=== PATIENT | male | born 1975 | race Caucasian/White ===

== ENCOUNTER → 2016-10-21 | Outpatient (CLI) | payer BC ==
[2016-10-21 16:28] LABS: CH 31.2; CHCM 33.7; HCT 51.8 % (39.0-53.0); HDW 2.68; MCH 30.6 pg (25.0-35.0); MCHC 32.9 g/dL (31.0-37.0); Mean Platelet Volume 7.1; RBC 5.57 m/uL (4.30-5.90); RDW 13.6 % (11.5-15.5); WBC 14.2 k/uL (3.8-10.6)
[2016-10-21 16:54] LABS: Prolactin 67.2 ng/mL (3.7-17.9)
[2016-10-21 17:08] LABS: Prostate Specific Antigen 0.65 ng/mL (0.00-4.00)
== END | disposition home or self-care (01) ==
LOC: LABWHC1 15:44
PROVIDERS: ATTEND Internal Medicine Endocrinology, Diabetes & Metabolism
DX: D35.2 Benign neoplasm of pituitary gland (principal); E29.1 Testicular hypofunction
CPT/HCPCS: 36415; 84146; 84153; 84403; 85027

== ENCOUNTER → 2017-02-17 | Outpatient (CLI) | payer BC ==
[2017-02-17 16:42] LABS: CH 32.1; CHCM 34.2; HDW 2.63; HGB 16.8 gm/dL (13.0-17.5); MCH 31.7 pg (25.0-35.0); MCHC 33.6 g/dL (31.0-37.0); MCV 94.3 fL (80.0-100.0); Mean Platelet Volume 7.7; RDW 13.6 % (11.5-15.5); WBC 14.1 k/uL (3.8-10.6)
[2017-02-17 16:55] LABS: ALT 45 U/L (21-72); AST 24 U/L (17-59); Alkaline Phosphatase 109 U/L (38-126); Anion Gap 8 mmol/L; Blood Urea Nitrogen 9 mg/dL (9-20); Calcium 9.2 mg/dL (8.4-10.2); Carbon Dioxide 28 mmol/L (22-30); Chloride 105 mmol/L (98-107); Glucose 77 mg/dL (74-99); Non-African American GFR(MDRD) >60 (>60 ml/min/1.73 sqM); Potassium 3.9 mmol/L (3.5-5.1); Sodium 141 mmol/L (137-145); Total Bilirubin 0.6 mg/dL (0.2-1.3); Total Protein 6.5 g/dL (6.3-8.2)
[2017-02-17 17:11] LABS: Prolactin 76.1 ng/mL (3.7-17.9)
== END ==
LOC: LABWHC1 16:09
PROVIDERS: ATTEND Internal Medicine Endocrinology, Diabetes & Metabolism
DX: D35.2 Benign neoplasm of pituitary gland (principal)
CPT/HCPCS: 36415; 80053; 84146; 84403; 85027

== ENCOUNTER → 2017-06-15 | Outpatient (CLI) | payer BC ==
[2017-06-15 16:08] LABS: CH 33.1; CHCM 34.8; HCT 48.7 % (39.0-53.0); HDW 2.76; HGB 16.6 gm/dL (13.0-17.5); MCH 32.6 pg (25.0-35.0); MCHC 34.1 g/dL (31.0-37.0); MCV 95.6 fL (80.0-100.0); Mean Platelet Volume 7.9; RBC 5.09 m/uL (4.30-5.90); RDW 15.2 % (11.5-15.5); WBC 13.8 k/uL (3.8-10.6)
[2017-06-15 16:19] LABS: ALT 43 U/L (21-72); AST 23 U/L (17-59); Alkaline Phosphatase 101 U/L (38-126); Anion Gap 10 mmol/L; Blood Urea Nitrogen 10 mg/dL (9-20); Calcium 9.3 mg/dL (8.4-10.2); Carbon Dioxide 26 mmol/L (22-30); Chloride 104 mmol/L (98-107); Glucose 103 mg/dL (74-99); Non-African American GFR(MDRD) >60 (>60 ml/min/1.73 sqM); Potassium 4.1 mmol/L (3.5-5.1); Sodium 140 mmol/L (137-145); Total Bilirubin 0.5 mg/dL (0.2-1.3); Total Protein 6.5 g/dL (6.3-8.2)
[2017-06-15 16:51] LABS: Prostate Specific Antigen 0.55 ng/mL (0.00-4.00)
== END | disposition home or self-care (01) ==
LOC: LABWHC1 15:37
PROVIDERS: ATTEND Internal Medicine Endocrinology, Diabetes & Metabolism
DX: D35.2 Benign neoplasm of pituitary gland (principal); E29.1 Testicular hypofunction
CPT/HCPCS: 36415; 80053; 84146; 84153; 84439; 84443; 84480; 85027

== ENCOUNTER → 2017-12-13 | Outpatient (CLI) | payer BC ==
[2017-12-13 15:50] LABS: HCT 50.1 % (39.0-53.0); HGB 16.3 gm/dL (13.0-17.5); MCHC 32.5 g/dL (31.0-37.0); MCV 92.2 fL (80.0-100.0); Mean Platelet Volume 7.7; Platelet Count 211 k/uL (150-450); RBC 5.43 m/uL (4.30-5.90); RDW 13.2 % (11.5-15.5); WBC 14.6 k/uL (3.8-10.6)
[2017-12-13 18:45] LABS: T4, Free (Free Thyroxine) 1.01 ng/dL (0.78-2.19)
[2017-12-13 21:55] LABS: ACTH 11.5 pg/mL (0.00-45.99)
== END | disposition home or self-care (01) ==
LOC: LABWHC1 15:28
PROVIDERS: ATTEND Internal Medicine Endocrinology, Diabetes & Metabolism
DX: E29.1 Testicular hypofunction (principal); D35.2 Benign neoplasm of pituitary gland
CPT/HCPCS: 36415; 82024; 84146; 84403; 84439; 84443; 85027

== ENCOUNTER → 2018-04-29 | Outpatient (CLI) | payer BC ==
[2018-04-29 16:01] LABS: MCH 30.3 pg (25.0-35.0); MCHC 33.9 g/dL (31.0-37.0); MCV 89.4 fL (80.0-100.0); Mean Platelet Volume 7.6; Platelet Count 227 k/uL (150-450); RBC 5.59 m/uL (4.30-5.90); RDW 13.7 % (11.5-15.5); WBC 12.3 k/uL (3.8-10.6)
[2018-04-29 16:11] LABS: ALT 45 U/L (21-72); AST 22 U/L (17-59); Albumin 4.3 g/dL (3.5-5.0); Alkaline Phosphatase 95 U/L (38-126); Anion Gap 9 mmol/L; Blood Urea Nitrogen 13 mg/dL (9-20); Calcium 9.4 mg/dL (8.4-10.2); Carbon Dioxide 26 mmol/L (22-30); Chloride 106 mmol/L (98-107); Glucose 96 mg/dL (74-99); Potassium 3.9 mmol/L (3.5-5.1); Sodium 141 mmol/L (137-145); Total Bilirubin 0.4 mg/dL (0.2-1.3); Total Protein 6.5 g/dL (6.3-8.2)
[2018-04-29 16:28] LABS: T4, Free (Free Thyroxine) 0.87 ng/dL (0.78-2.19)
[2018-04-29 16:42] LABS: Prostate Specific Antigen 0.66 ng/mL (0.00-4.00)
== END | disposition home or self-care (01) ==
LOC: LABWHC1 15:26
PROVIDERS: ATTEND Internal Medicine Endocrinology, Diabetes & Metabolism
DX: D35.2 Benign neoplasm of pituitary gland (principal); E29.1 Testicular hypofunction
CPT/HCPCS: 36415; 80053; 84146; 84153; 84403; 84439; 84443; 85027

== ENCOUNTER → 2018-11-02 | Outpatient (CLI) | payer BC ==
[2018-11-02 16:42] LABS: HCT 50.9 % (39.0-53.0); HGB 16.7 gm/dL (13.0-17.5); MCHC 32.9 g/dL (31.0-37.0); MCV 91.1 fL (80.0-100.0); Mean Platelet Volume 6.9; Platelet Count 218 k/uL (150-450); RBC 5.59 m/uL (4.30-5.90); RDW 13.4 % (11.5-15.5); WBC 12.9 k/uL (3.8-10.6)
[2018-11-03 02:52] LABS: Albumin 4.5 g/dL (3.80-4.90); Albumin/Globulin Ratio 3.21 (1.20-2.10); Calcium 9.3 mg/dL (8.7-10.3); Globulin 1.4 g/dL (1.6-3.3); Potassium 3.9 mmol/L (3.5-5.5); Total Bilirubin 0.4 mg/dL (0.3-1.2); Total Protein 5.9 g/dL (6.2-8.2)
[2018-11-03 03:00] LABS: T4, Free (Free Thyroxine) 1.2 ng/dL (0.80-1.80)
== END | disposition home or self-care (01) ==
LOC: LABWHC1 15:28
PROVIDERS: ATTEND Internal Medicine Endocrinology, Diabetes & Metabolism
DX: D35.2 Benign neoplasm of pituitary gland (principal)
CPT/HCPCS: 36415; 80053; 82533; 84146; 84403; 84439; 84443; 84480; 85027

== ENCOUNTER → 2019-05-08 | Outpatient (CLI) | payer BC ==
[2019-05-08 15:29] LABS: HCT 49.2 % (39.0-53.0); HGB 16.7 gm/dL (13.0-17.5); MCH 30.8 pg (25.0-35.0); MCV 90.5 fL (80.0-100.0); Mean Platelet Volume 7.4; Platelet Count 222 k/uL (150-450); RBC 5.44 m/uL (4.30-5.90); RDW 13.8 % (11.5-15.5); WBC 11.5 k/uL (3.8-10.6)
[2019-05-08 19:30] LABS: African American GFR (CKD) 106.4 (60.0-200.0); Albumin 4.3 g/dL (3.80-4.90); Albumin/Globulin Ratio 2.87 (1.60-3.17); Anion Gap 8.3 mmol/L (4.00-12.00); Calcium 8.9 mg/dL (8.7-10.3); Carbon Dioxide 25.7 mmol/L (21.6-31.8); Globulin 1.5 g/dL (1.6-3.3); Potassium 3.9 mmol/L (3.5-5.5); Total Bilirubin 0.4 mg/dL (0.3-1.2); Total Protein 5.8 g/dL (6.2-8.2)
== END | disposition home or self-care (01) ==
LOC: LABWHC1 14:37
PROVIDERS: ATTEND Internal Medicine Endocrinology, Diabetes & Metabolism
DX: D35.2 Benign neoplasm of pituitary gland (principal)
CPT/HCPCS: 36415; 80053; 84146; 84403; 84439; 85027

== ENCOUNTER → 2019-11-16 | Outpatient (CLI) | payer OTHER ==
[2019-11-17 01:11] LABS: African American GFR (CKD) 105.6 (60.0-200.0); Albumin 4.6 g/dL (3.80-4.90); Albumin/Globulin Ratio 3.29 (1.60-3.17); Anion Gap 8.5 mmol/L (4.00-12.00); Calcium 8.7 mg/dL (8.7-10.3); Carbon Dioxide 25.5 mmol/L (21.6-31.8); Globulin 1.4 g/dL (1.6-3.3); Non-African American GFR(CKD) 91.1 (60.0-200.0); Potassium 3.9 mmol/L (3.5-5.5); Total Bilirubin 0.3 mg/dL (0.3-1.2)
[2019-11-17 01:21] LABS: T4, Free (Free Thyroxine) 1.3 ng/dL (0.80-1.80)
[2019-11-17 01:25] LABS: Prolactin 44.8 ng/mL (2.1-17.7)
== END | disposition home or self-care (01) ==
LOC: LABWHC1 15:13
PROVIDERS: ATTEND Internal Medicine Endocrinology, Diabetes & Metabolism
DX: D35.2 Benign neoplasm of pituitary gland (principal)
CPT/HCPCS: 36415; 80053; 82533; 84146; 84403; 84439; 84443

== ENCOUNTER → 2020-05-30 | Outpatient (CLI) | payer OTHER ==
[2020-05-30 15:12] LABS: HGB 16.2 gm/dL (13.0-17.5); MCH 30.9 pg (25.0-35.0); MCHC 33.7 g/dL (31.0-37.0); MCV 91.6 fL (80.0-100.0); Mean Platelet Volume 8.3; Platelet Count 196 k/uL (150-450); RBC 5.24 m/uL (4.30-5.90); RDW 13.3 % (11.5-15.5)
== END | disposition home or self-care (01) ==
LOC: LABWHC1 14:56
PROVIDERS: ATTEND Internal Medicine Endocrinology, Diabetes & Metabolism
DX: D35.2 Benign neoplasm of pituitary gland (principal)
CPT/HCPCS: 36415; 82024; 82533; 84146; 84403; 85027

== ENCOUNTER → 2020-11-27 | Outpatient (CLI) | payer OTHER ==
[2020-11-27 22:49] LABS: HCT 49.9 % (39.6-50.0); MCH 31.2 pg (27.0-32.0); MCHC 34.1 g/dL (32.0-37.0); MCV 91.6 fL (80.0-97.0); Mean Platelet Volume 10.9 fL (9.5-12.2); Platelet Count 217 X 10*3/uL (140-440); RBC 5.45 X 10*6/uL (4.40-5.60); RDW 12.9 % (11.5-14.5); WBC 12.83 X 10*3/uL (4.50-10.00)
[2020-11-28 01:51] LABS: Prostate Specific Antigen 0.6 ng/mL (0.0-2.5)
[2020-11-28 02:46] LABS: Prolactin 48.2 ng/mL (2.1-17.7)
== END | disposition home or self-care (01) ==
LOC: LABWHC1 14:45
PROVIDERS: ATTEND Internal Medicine Endocrinology, Diabetes & Metabolism
DX: E29.1 Testicular hypofunction (principal); D35.2 Benign neoplasm of pituitary gland
CPT/HCPCS: 36415; 82024; 82533; 84146; 84153; 84403; 85027

== ENCOUNTER → 2021-07-23 | Outpatient (CLI) | payer OTHER ==
[2021-07-23 23:23] LABS: HCT 49.8 % (39.6-50.0); HGB 16.8 g/dL (13.0-17.0); MCH 30.6 pg (27.0-32.0); MCHC 33.7 g/dL (32.0-37.0); MCV 90.7 fL (80.0-97.0); Mean Platelet Volume 10.9 fL (9.5-12.2); Platelet Count 224 X 10*3/uL (140-440); RBC 5.49 X 10*6/uL (4.40-5.60); WBC 12.89 X 10*3/uL (4.50-10.00)
[2021-07-25 01:05] LABS: Prolactin 49.6 ng/mL (2.100-17.700)
== END | disposition home or self-care (01) ==
LOC: LABWHC1 15:47
PROVIDERS: ATTEND Internal Medicine Endocrinology, Diabetes & Metabolism
DX: D35.2 Benign neoplasm of pituitary gland (principal); E29.1 Testicular hypofunction
CPT/HCPCS: 36415; 84146; 84305; 84403; 85027

== ENCOUNTER → 2022-02-24 | Outpatient (CLI) | payer BC ==
[2022-02-24 23:22] LABS: HCT 44.9 % (39.6-50.0); HGB 14.7 g/dL (13.0-17.0); MCH 30.1 pg (27.0-32.0); MCHC 32.7 g/dL (32.0-37.0); Mean Platelet Volume 10.9 fL (9.5-12.2); NRBC Per 100 WBC 0 /100 WBCS (0.0-0.0); Platelet Count 224 X 10*3/uL (140-440); RBC 4.88 X 10*6/uL (4.40-5.60); RDW 13.3 % (11.5-14.5); WBC 12.11 X 10*3/uL (4.50-10.00)
[2022-02-25 00:01] LABS: Prolactin 23.1 ng/mL (2.100-17.700)
== END | disposition home or self-care (01) ==
LOC: LABWHC1 15:27
PROVIDERS: ATTEND Internal Medicine Endocrinology, Diabetes & Metabolism
DX: D35.2 Benign neoplasm of pituitary gland (principal); E29.1 Testicular hypofunction
CPT/HCPCS: 36415; 84146; 84305; 84403; 85027

== ENCOUNTER → 2022-07-09 | Outpatient (CLI) | payer BC ==
[2022-07-09 23:03] LABS: HCT 45.7 % (39.6-50.0); HGB 15.5 g/dL (13.0-17.0); MCH 30.6 pg (27.0-32.0); MCHC 33.9 g/dL (32.0-37.0); MCV 90.3 fL (80.0-97.0); Mean Platelet Volume 10.8 fL (9.5-12.2); NRBC Per 100 WBC 0 /100 WBCS (0.0-0.0); Platelet Count 242 X 10*3/uL (140-440); RBC 5.06 X 10*6/uL (4.40-5.60); RDW 13.1 % (11.5-14.5); WBC 13.61 X 10*3/uL (4.50-10.00)
[2022-07-10 00:43] LABS: Prolactin 22.5 ng/mL (2.100-17.700); Prostate Specific Antigen 0.4 ng/mL (0.00-2.50)
== END | disposition home or self-care (01) ==
LOC: LABWHC1 15:02
PROVIDERS: ATTEND Internal Medicine Endocrinology, Diabetes & Metabolism
DX: E29.1 Testicular hypofunction (principal); D35.2 Benign neoplasm of pituitary gland; E27.40 Unspecified adrenocortical insufficiency
CPT/HCPCS: 36415; 82024; 82533; 84146; 84153; 84403; 85027

== ENCOUNTER → 2023-01-19 | Outpatient (CLI) | payer BC ==
[2023-01-19 15:32] LABS: HCT 47.2 % (39.6-50.0); HGB 15.7 g/dL (13.0-17.0); MCH 29.8 pg (27.0-32.0); MCHC 33.3 g/dL (32.0-37.0); MCV 89.7 fL (80.0-97.0); Mean Platelet Volume 10.6 fL (9.5-12.2); NRBC Per 100 WBC 0 /100 WBCS (0.0-0.0); Platelet Count 239 X 10*3/uL (140-440); RBC 5.26 X 10*6/uL (4.40-5.60); RDW 13.1 % (11.5-14.5); WBC 11.56 X 10*3/uL (4.50-10.00)
[2023-01-19 16:52] LABS: Prolactin 25.4 ng/mL (2.100-17.700)
== END | disposition home or self-care (01) ==
LOC: LABWHC1 09:33
PROVIDERS: ATTEND Internal Medicine Endocrinology, Diabetes & Metabolism
DX: D35.2 Benign neoplasm of pituitary gland (principal)
CPT/HCPCS: 36415; 82024; 82533; 84146; 84153; 84403; 85027

== ENCOUNTER → 2023-08-12 | Outpatient (CLI) | payer BC ==
[2023-08-12 20:46] LABS: Prostate Specific Antigen 0.48 ng/mL (0.000-2.500)
[2023-08-12 21:35] LABS: Prolactin 28.3 ng/mL (2.100-17.000)
[2023-08-13 01:00] LABS: HCT 46.1 % (39.6-50.0); HGB 15.7 d/dL (13.0-17.0); MCH 30.8 pg (27.0-32.0); MCHC 34.1 d/dL (32.0-37.0); MCV 90.6 FL (80.0-97.0); Mean Platelet Volume 11.1 FL (9.5-12.2); NRBC Per 100 WBC 0 X 10*3/uL (0.00-0.01); Platelet Count 225 X 10*3/uL (140-440); RBC 5.09 X 10*6/uL (4.40-5.60); RDW 13.7 % (11.5-14.5); WBC 12.67 X 10*3/uL (4.50-10.00)
== END | disposition home or self-care (01) ==
LOC: LABWHC1 15:01
PROVIDERS: ATTEND Internal Medicine Endocrinology, Diabetes & Metabolism
DX: D35.2 Benign neoplasm of pituitary gland (principal)
CPT/HCPCS: 36415; 82024; 82533; 84146; 84153; 84403; 85027

== ENCOUNTER → 2024-03-15 | Outpatient (CLI) | payer BC ==
[2024-03-15 19:20] LABS: HCT 46.3 % (39.6-50.0); HGB 15.6 g/dL (13.0-17.0); MCH 30.3 pg (27.0-32.0); MCHC 33.7 g/dL (32.0-37.0); MCV 89.9 FL (80.0-97.0); Mean Platelet Volume 10.8 FL (9.5-12.2); NRBC Per 100 WBC 0 X 10*3/uL (0.00-0.01); Platelet Count 228 X 10*3/uL (140-440); RBC 5.15 X 10*6/uL (4.40-5.60); RDW 13.2 % (11.5-14.5); WBC 11.34 X 10*3/uL (4.50-10.00)
[2024-03-15 21:36] LABS: ALT 25 U/L (10-49); AST 19 U/L (14-35); Albumin 4.5 g/dL (3.8-4.9); Albumin/Globulin Ratio 2.65 Ratio (1.60-3.17); Alkaline Phosphatase 97 U/L (41-126); Blood Urea Nitrogen 12.4 mg/dL (9.0-27.0); Calcium 9.3 mg/dL (8.7-10.3); Carbon Dioxide 25.8 mmol/L (21.6-31.8); Chloride 105 mmol/L (96-109); Globulin 1.7 g/dL (1.6-3.3); Glucose 74 mg/dL (70-110); Potassium 4.3 mmol/L (3.5-5.5); Prostate Specific Antigen 0.49 ng/mL (0.000-2.500); Sodium 142 mmol/L (135-145); Total Bilirubin 0.3 mg/dL (0.3-1.2); Total Protein 6.2 g/dL (6.2-8.2)
== END | disposition home or self-care (01) ==
LOC: LABWHC1 14:55
PROVIDERS: ATTEND Internal Medicine Endocrinology, Diabetes & Metabolism
DX: D35.2 Benign neoplasm of pituitary gland (principal); E29.1 Testicular hypofunction
CPT/HCPCS: 36415; 80053; 84146; 84153; 84403; 85027

== ENCOUNTER 2024-08-07 12:11 | Observation (INO) | payer BC ==
--- NOTE | 2024-08-07 12:27 | ED ---
GI Bleed HPI - General Source: patient, RN notes reviewed Mode of arrival: wheelchair Limitations: no limitations <Radha Chase - Last Filed: 08/07/24 12:26> <Corey Pastor - Last Filed: 08/07/24 13:36> - General Chief complaint: GI Bleed Stated complaint: Dizziness, blood in stool Time Seen by Provider: 08/07/24 12:20 - History of Present Illness Initial comments: Quick Note: This is a 48-year-old male who presents to the emergency department for bloody diarrhea. States that it started about 3 days ago. Unsure if this is dark or bright red blood. Having about 5-6 episodes of diarrhea daily. He had generalized abdominal cramping yesterday. Not taking any blood thinners. States that he is now starting to feel very dizzy and weak. (Radha Chase) Dictation was produced using [employer] dictation software. please excuse any grammatical, word or spelling errors. Chief Complaint: 48-year-old female presents to the emergency department for GI bleed History of Present Illness: Patient is a 48-year-old male presents emergency department with bloody diarrhea for the last 3 days. Patient states he feels lightheaded. 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 Patient denies any abdominal pain. No rectal pain. The ROS documented in this emergency department record has been reviewed and co nfirmed by me. Those systems with pertinent positive or negative responses have been documented in the HPI. All other systems are other negative and/or noncontributory. (Corey Pastor) - Related Data Allergies Allergy/AdvReac Type Severity Reaction Status Date / Time No Known Allergies Allergy Verified 08/07/24 12:22 Review of Systems ROS Other: All systems not noted in ROS Statement are negative. <Radha Chase - Last Filed: 08/07/24 12:26> ROS Other: All systems not noted in ROS Statement are negative. <Corey Pastor - Last Filed: 08/07/24 13:36> ROS Statement: Those systems with pertinent positive or pertinent negative responses have been documented in the HPI. Past Medical History Additional Past Medical History / Comment(s): pituitary tumor Past Surgical History: No Surgical Hx Reported Smoking Status: Current every day smoker Past Alcohol Use History: None Reported Past Drug Use History: None Reported <Radha Chase - Last Filed: 08/07/24 12:26> General Exam Limitations: no limitations <Radha Chase - Last Filed: 08/07/24 12:26> <Corey Pastor - Last Filed: 08/07/24 13:36> - General Exam Comments Initial Comments: Visual Physical Exam Vital signs reviewed General: Well-appearing, nontoxic, no acute distress. Head: Normocephalic, atraumatic Eyes: PERRLA, EOMI ENT: Airway patent Chest: Nonlabored breathing Skin: No visual rash, normal skin tone Neuro: Alert and oriented 3 Musculoskeletal: No gross abnormalities (Radha Chase) PHYSICAL EXAM: General Impression: Alert and oriented x3, not in acute distress HEENT: Normocephalic atraumatic, extra-ocular movements intact, pupils equal and reactive to light bilaterally, mucous membranes moist. Cardiovascular: Heart regular rate and rhythm Chest: Able to complete full sentences, no retractions, no tachypnea Abdomen: abdomen soft, non-tender, non-distended, no organomegaly Musculoskeletal: Pulses present and equal in all extremities, no peripheral edema Motor: no focal deficits noted Neurological: CN II-XII grossly intact, no focal motor or sensory deficits noted Skin: Intact with no visualized rashes Psych: Normal affect and mood Rectal: Grossly bloody (Corey Pastor) Course Vital Signs 08/07/24 08/07/24 12:20 12:38 Temperature 99 F Pulse Rate 104 H 101 H Respiratory 16 18 Rate Blood Pressure 144/87 130/94 O2 Sat by Pulse 99 97 Oximetry Medical Decision Making <Radha Chase - Last Filed: 08/07/24 12:26> - Lab Data Result diagrams: 08/07/24 12:32 08/07/24 12:32 <Corey Pastor - Last Filed: 08/07/24 13:36> - Medical Decision Making I performed the QuickNote portion of this chart. Signed Radha Chase PA-C. (Radha Chase) My EKG interpretation: Ventricular rate 102, sinus tachycardia,. 136, QRS 104, QTc 399. No AR prolongation, no QTC prolongation, no ST or T-wave changes noted. Overall, this EKG is unremarkable Was pt. sent in by a medical professional or institution (LOUIE Haas, TOXICS PROGRAM OFFICER, urgent care, hospital, or skilled nursing...) When possible be specific @ -No Did you speak to anyone other than the patient for history (EMS, parent, family, police, friend...)? What history was obtained from this source @ -No Did you review nursing and triage notes (agree or disagree)? Why? @ -I reviewed and agree with nursing and triage notes Were old charts reviewed (outside hosp., previous admission, EMS record, old EKG, old radiological studies, urgent care reports/EKG's, skilled nursing records)? Report findings @ -No old charts were reviewed Differential Diagnosis (chest pain, altered mental status, abdominal pain women, abdominal pain men, vaginal bleeding, musculoskeletal, weakness, fever, dyspnea, syncope, headache, dizziness, GI bleed, back pain, seizure, CVA, palpatations, mental health)? @ -Differential GI Bleed: Esophageal varices, aortoenteric fistula, Lara-Evans, gastritis, peptic ulcer disease, diverticulosis, inflammatory bowel disease, hemorrhoids, fissure, colitis, malignancy, Meckel's diverticulum, this is not meant to be an all- inclusive list. EKG interpreted by me (3pts min.). @ -see above X-rays interpreted by me (1pt min.). @ -None done CT interpreted by me (1pt min.). @ -None done U/S interpreted by me (1pt. min.). @ -None done What testing was considered but not performed or refused? (CT, X-rays, U/S, labs)? Why? @ -None What meds were considered but not given or refused? Why? @ -None Was smoking cessation discussed for >3mins.? @ -No Were there social determinants of health that impacted care today? How? (Homelessness, low income, unemployed, alcoholism, drug addiction, transportation, low edu. Level, literacy, decrease access to med. care, assisted, rehab)? @ -No Was there de-escalation of care discussed even if they declined (Discuss DNR or withdrawal of care, Hospice)? DNR status @ -No What co-morbidities impacted this encounter? (DM, HTN, Smoking, COPD, CAD, C ancer, CVA, ARF, Chemo, Hep., AIDS, mental health diagnosis, sleep apnea, morbid obesity)? @ -Brain tumor with hydrocortisone use Was patient admitted / discharged? Hospital course, mention meds given and route, prescriptions, significant lab abnormalities, going to OR and other pertinent info. @ -48-year-old male with symptomatic anemia and GI bleed. Vital signs upon arrival are within acceptable limits except for some mild tachycardia. Laboratory evaluation shows 3 g hemoglobin drop from 5 months ago. Stool occult blood positive. Rest of labs within acceptable limits will be admitted with consultation to GI Case discussed with hospitalist for admission Did you discuss the management of the patient with other professionals (professionals i.e. , PA, TOXICS PROGRAM OFFICER, lab, RT, psych nurse, social science analyst, livestock trucker, teacher, network security officer, counseling case manager)? Give summary @ -See above Was critical care preformed (if so, how long)? @ -Yes, 33 minutes for acute blood loss anemia management Undiagnosed new problem with uncertain prognosis? @ -No Drug Therapy requiring intensive monitoring for toxicity (Heparin, Nitro, Insulin, Cardizem)? @ -No Were any procedures done? @ -No Diagnosis/symptom? Acute, or Chronic, or Acute on Chronic? Uncomplicated (without systemic symptoms) or Complicated (systemic symptoms)? @ -Acute GI bleed Side effects of treatment? @ -No Exacerbation, Progression, or Severe Exacerbation? @ -No Poses a threat to life or bodily function? How? (Chest pain, [place], [place], pneumonia, PE, COPD, DKA, ARF, appy, cholecystitis, CVA, Diverticulitis, Homicidal, Suicidal, threat to staff... and all critical care pts) @ -yes (Corey Pastor) - Lab Data Lab Results 08/07/24 08/07/24 08/07/24 Range/Units 12:30 12:32 12:32 WBC 14.2 H (3.8-10.6) k/uL RBC 3.97 L (4.30-5.90) m/uL Hgb 12.3 L (13.0-17.5) gm/dL Hct 36.8 L (39.0-53.0) % MCV 92.8 (80.0-100.0) fL MCH 30.9 (25.0-35.0) pg MCHC 33.3 (31.0-37.0) g/dL RDW 13.6 (11.5-15.5) % Plt Count 259 (150-450) k/uL MPV 8.1 Neutrophils % 82 % Lymphocytes % 12 % Monocytes % 3 % Eosinophils % 1 % Basophils % 0 % Neutrophils # 11.7 H (1.3-7.7) k/uL Lymphocytes # 1.8 (1.0-4.8) k/uL Monocytes # 0.5 (0-1.0) k/uL Eosinophils # 0.1 (0-0.7) k/uL Basophils # 0.0 (0-0.2) k/uL APTT 23.2 (22.0-30.0) sec Sodium (137-145) mmol/L Potassium (3.5-5.1) mmol/L Chloride (98-107) mmol/L Carbon Dioxide (22-30) mmol/L Anion Gap mmol/L BUN (9-20) mg/dL Creatinine (0.66-1.25) mg/dL Est GFR (CKD-EPI)AfAm (>60 ml/min/1.73 sqM) Est GFR (CKD-EPI)NonAf (>60 ml/min/1.73 sqM) Glucose (74-99) mg/dL Plasma Lactic Acid Colton (0.7-2.0) mmol/L Calcium (8.4-10.2) mg/dL Magnesium (1.6-2.3) mg/dL Total Bilirubin (0.2-1.3) mg/dL AST (17-59) U/L ALT (4-49) U/L Alkaline Phosphatase (38-126) U/L Troponin I (0.000-0.034) ng/mL Total Protein (6.3-8.2) g/dL Albumin (3.5-5.0) g/dL Stool Occult Blood (Negative) Blood Type Blood Type Confirm O Positive Blood Type Recheck Bld Type Recheck Status Antibody Screen Spec Expiration Date 08/07/24 08/07/24 08/07/24 Range/Units 12:32 12:32 12:32 WBC (3.8-10.6) k/uL RBC (4.30-5.90) m/uL Hgb (13.0-17.5) gm/dL Hct (39.0-53.0) % MCV (80.0-100.0) fL MCH (25.0-35.0) pg MCHC (31.0-37.0) g/dL RDW (11.5-15.5) % Plt Count (150-450) k/uL MPV Neutrophils % % Lymphocytes % % Monocytes % % Eosinophils % % Basophils % % Neutrophils # (1.3-7.7) k/uL Lymphocytes # (1.0-4.8) k/uL Monocytes # (0-1.0) k/uL Eosinophils # (0-0.7) k/uL Basophils # (0-0.2) k/uL APTT (22.0-30.0) sec Sodium 136 L (137-145) mmol/L Potassium 3.9 (3.5-5.1) mmol/L Chloride 110 H (98-107) mmol/L Carbon Dioxide 21 L (22-30) mmol/L Anion Gap 5 mmol/L BUN 20 (9-20) mg/dL Creatinine 1.03 (0.66-1.25) mg/dL Est GFR (CKD-EPI)AfAm >90 (>60 ml/min/1.73 sqM) Est GFR (CKD-EPI)NonAf 86 (>60 ml/min/1.73 sqM) Glucose 145 H (74-99) mg/dL Plasma Lactic Acid Colton (0.7-2.0) mmol/L Calcium 8.6 (8.4-10.2) mg/dL Magnesium 1.8 (1.6-2.3) mg/dL Total Bilirubin 0.6 (0.2-1.3) mg/dL AST 24 (17-59) U/L ALT 22 (4-49) U/L Alkaline Phosphatase 82 (38-126) U/L Troponin I 0.018 (0.000-0.034) ng/mL Total Protein 5.7 L (6.3-8.2) g/dL Albumin 3.9 (3.5-5.0) g/dL Stool Occult Blood (Negative) Blood Type Blood Type Confirm Blood Type Recheck No Previous Record Bld Type Recheck Status CABO Indicated Antibody Screen Spec Expiration Date 08/07/24 08/07/24 08/07/24 Range/Units 12:35 12:52 12:52 WBC (3.8-10.6) k/uL RBC (4.30-5.90) m/uL Hgb (13.0-17.5) gm/dL Hct (39.0-53.0) % MCV (80.0-100.0) fL MCH (25.0-35.0) pg MCHC (31.0-37.0) g/dL RDW (11.5-15.5) % Plt Count (150-450) k/uL MPV Neutrophils % % Lymphocytes % % Monocytes % % Eosinophils % % Basophils % % Neutrophils # (1.3-7.7) k/uL Lymphocytes # (1.0-4.8) k/uL Monocytes # (0-1.0) k/uL Eosinophils # (0-0.7) k/uL Basophils # (0-0.2) k/uL APTT (22.0-30.0) sec Sodium (137-145) mmol/L Potassium (3.5-5.1) mmol/L Chloride (98-107) mmol/L Carbon Dioxide (22-30) mmol/L Anion Gap mmol/L BUN (9-20) mg/dL Creatinine (0.66-1.25) mg/dL Est GFR (CKD-EPI)AfAm (>60 ml/min/1.73 sqM) Est GFR (CKD-EPI)NonAf (>60 ml/min/1.73 sqM) Glucose (74-99) mg/dL Plasma Lactic Acid Colton 1.3 (0.7-2.0) mmol/L Calcium (8.4-10.2) mg/dL Magnesium (1.6-2.3) mg/dL Total Bilirubin (0.2-1.3) mg/dL AST (17-59) U/L ALT (4-49) U/L Alkaline Phosphatase (38-126) U/L Troponin I (0.000-0.034) ng/mL Total Protein (6.3-8.2) g/dL Albumin (3.5-5.0) g/dL Stool Occult Blood Positive (Negative) Blood Type O Positive Blood Type Confirm Blood Type Recheck Bld Type Recheck Status Antibody Screen NEGATIVE Spec Expiration Date 08/10/20242331 Disposition <Radha Chase - Last Filed: 08/07/24 12:26> Decision Time: 13:36 <Corey Pastor - Last Filed: 08/07/24 13:36> Clinical Impression: GI bleed Disposition: ADMITTED IP TO THIS [facility] Condition: Fair Referrals: None,Stated [Primary Care Provider] - 1-2 days
[2024-08-07 12:41] LABS: Basophils % (A) 0 %; Eosinophils # (A) 0.1 k/uL (0-0.7); Eosinophils % (A) 1 %; HCT 36.8 % (39.0-53.0); HGB 12.3 gm/dL (13.0-17.5); Lymphocytes # (A) 1.8 k/uL (1.0-4.8); Lymphocytes % (A) 12 %; MCH 30.9 pg (25.0-35.0); MCHC 33.3 g/dL (31.0-37.0); MCV 92.8 fL (80.0-100.0); Mean Platelet Volume 8.1; Monocytes # (A) 0.5 k/uL (0-1.0); Monocytes % (A) 3 %; Neutrophils # (A) 11.7 k/uL (1.3-7.7); Neutrophils % (A) 82 %; Platelet Count 259 k/uL (150-450); RBC 3.97 m/uL (4.30-5.90); RDW 13.6 % (11.5-15.5); WBC 14.2 k/uL (3.8-10.6)
[2024-08-07] MEDS: PANTOPRAZOLE 40 MG/10 ML VIAL IVP ONE (12:57)
[2024-08-07] MEDS: SODIUM CHLORIDE 0.9% 1,000 ML IV STA (12:57)
[2024-08-07 13:02] LABS: ALT 22 U/L (4-49); AST 24 U/L (17-59); African American GFR (CKD) >90 (>60 ml/min/1.73 sqM); Albumin 3.9 g/dL (3.5-5.0); Alkaline Phosphatase 82 U/L (38-126); Anion Gap 5 mmol/L; Blood Urea Nitrogen 20 mg/dL (9-20); Calcium 8.6 mg/dL (8.4-10.2); Carbon Dioxide 21 mmol/L (22-30); Chloride 110 mmol/L (98-107); Glucose 145 mg/dL (74-99); Magnesium 1.8 mg/dL (1.6-2.3); Non-African American GFR(CKD) 86 (>60 ml/min/1.73 sqM); Potassium 3.9 mmol/L (3.5-5.1); Sodium 136 mmol/L (137-145); Total Bilirubin 0.6 mg/dL (0.2-1.3); Total Protein 5.7 g/dL (6.3-8.2)
[2024-08-07] MEDS ORDERED: NALOXONE 0.4 MG/ML 1 ML VIAL IV PRN (13:32)
[2024-08-07] MEDS: SODIUM CHLORIDE 0.9% 1,000 ML IV SCH (13:49)
[2024-08-07] MEDS: CABERGOLINE 0.5 MG PO SCH (15:16)
[2024-08-07 15:23] LABS: HCT 33.9 % (39.0-53.0); HGB 10.9 gm/dL (13.0-17.5); MCH 30.2 pg (25.0-35.0); MCHC 32.1 g/dL (31.0-37.0); MCV 94.1 fL (80.0-100.0); Mean Platelet Volume 8.7; Platelet Count 218 k/uL (150-450); RBC 3.61 m/uL (4.30-5.90); RDW 13.7 % (11.5-15.5); WBC 14.9 k/uL (3.8-10.6)
[2024-08-07] MEDS ORDERED: MORPHINE SULFATE 4 MG/ML SYRINGE IV PRN (17:44)
--- NOTE | 2024-08-07 17:47 | P.HPIM ---
History of Present Illness H&P Date: 08/07/24 History of Presenting Illness: Patient is a very pleasant 48-year-old male with a past medical history of pituitary tumor and nicotine dependence. He presented to the emergency department with a chief complaint of dizziness and experiencing reports of blood in stool. Patient reports symptoms began 3 days ago when he noticed having diarrhea with dark maroon/bloody stools. He reports having approximately 5-6 episodes daily with blood mixed throughout the stool accompanied by intermittent abdominal cramping. He does report taking Advil daily states taking approximately 600 mg daily since he can remember because it is the only thing that will help with his headaches from his pituitary tumor. He denies being on any blood thinners. He reports 1 previous episode of blood in his stool approximately a month ago lasting a couple days and clearing up on its own. He denies having a colonoscopy previously. Patient states his has encouraged him to go to the emergency department over the past 3 days but it was not until today that he felt his symptoms worsened. Patient reports with continued bloody stools he was in the restroom having a bowel movement when he became significantly diaphoretic and dizzy and felt as though he was going to pass out. Patient states he barely made it to the couch before falling over landing on the couch cushion and his stated that it I am taking you to the hospital. Patient denies having any other complaints including fevers, chills, chest pain, palpitations, shortness of breath, or experiencing any difficulties with or changes in his urinary function. Upon arrival to our facility, patient under went evaluation in the emergency department. Vital signs upon arrival show blood pressure 144/87, heart rate 104, respiratory rate 16, temp 99.0 F, and SpO2 of 99% on room air. Labs completed and reviewed. CBC showing leukocytosis with WBC count of 14.2 and normocytic anemia with hemoglobin of 12.3 with baseline hemoglobin of 15-16. BMP showing non-anion gap metabolic acidosis with chloride of 110, bicarb of 21, and anion gap of 5. Renal function normal findings with BUN is 28 which is higher than baseline of 12. Blood glucose 145. Lactic acid 1.3. Magnesium 1.8. Liver profile normal findings. Troponin 0.018. Fecal occult positive. EKG was completed showing sinus tachycardia 102 bpm with nonspecific T wave changes in inferior/lateral leads and an incomplete right bundle branch block. Patient was admitted under our services with consultation to gastroenterology. Review of systems: Pertinent positives and negatives as discussed in HPI, a complete review of systems was performed and all other systems are negative. Physical exam: Vital signs reviewed and stable. General: Nontoxic, no distress and appears stated age. Derm: Skin warm and dry, normal coloration for ethnicity. Head: Atraumatic, normocephalic and symmetric. Eyes: EOM's intact, no lid lag, and anicteric sclera Mouth: no lip lesions, mucus membranes moist Cardiovascular: regular rate and rhythm with normal S1S2, no murmur, positive posterior tibial pulses bilaterally, and cap refill < 2 seconds. Lungs: Respirations even, regular, and unlabored on room air. Lungs CTA bilaterally, no rhonchi, no rales, no wheezing, and no accessory muscle usage. Abdominal: soft, tenderness upon palpation to left upper and lower quadrant, no guarding, no appreciable organomegaly Ext: ROM intact. No gross muscle atrophy, no edema, no contractures Neuro: Speech clear, face symmetrical and CN II-XII grossly intact with no noted focal neuro deficits Psych: Alert and oriented to person, place, time, and situation. Appropriate and pleasant affect. Assessment and Plan of Care: GI bleed Acute blood loss anemia, secondary to above -Consult Gastroenterology. -CT abdomen and pelvis with contrast was ordered secondary to reports of GI bleed and findings of left upper and lower quadrant tenderness upon mild palpation. -Monitor H&H every 6 hours and transfuse as needed for hemoglobin less than 7. -Protonix 40 mg IVP twice daily. -Clear liquid diet pending evaluation by GI. -Continued gentle hydration with 0.9% normal saline at 130 cc/h. -SCDs for DVT prophylaxis. -Symptomatic care and pain management with Zofran 4 mg IVP every 8 hours as needed for nausea or vomiting and morphine 4 mg IVP every 4 hours as needed for pain. Pituitary tumor Continue cabergoline 0.5 mg twice weekly on Mondays and Fridays. Continue hydrocortisone 10 mg daily at 6 AM and 20 mg daily at 4 AM Continue testosterone AndroGel pump, personal pump Nicotine dependence Recommend smoking cessation and order placed for nicotine patch 21 mg daily. Data and imaging reviewed: As stated above in HPI The patient is admitted with an anticipated greater than 2 midnight stay for evaluation of GI bleed and acute blood loss anemia CODE STATUS: Full code DVT prophylaxis: SCDs Anticipated discharge date: Pending clinical course Anticipated discharge place: Home Patient was seen independently by Nurse Practitioner. This document was prepared using [employer] dictation software. Please allow for errors in labor relations consultant while rare they do occur.. I reviewed the documentation as provided by the ANUEL above, who is the original author of this note. I agree with the documented assessment and plan, with the following changes: none Past Medical History Additional Past Medical History / Comment(s): pituitary tumor Past Surgical History: No Surgical Hx Reported Smoking Status: Current every day smoker Past Alcohol Use History: None Reported Past Drug Use History: None Reported Medications and Allergies Home Medications Medication Instructions Recorded Confirmed Type Cabergoline 0.5 mg PO MOFR 08/07/24 08/07/24 History Hydrocortisone [Cortef] 10 mg PO DAILY@0600 08/07/24 08/07/24 History Hydrocortisone [Cortef] 20 mg PO DAILY@0400 08/07/24 08/07/24 History Testosterone [Androgel 1.62%] 2 pump TRANSDERM DAILY 08/07/24 08/07/24 History Allergies Allergy/AdvReac Type Severity Reaction Status Date / Time No Known Allergies Allergy Verified 08/07/24 13:39 Physical Exam Osteopathic Statement: *. No significant issues noted on an osteopathic structural exam other than those noted in the History and Physical/Consult. Vitals: Vital Signs Temp Pulse Resp BP Pulse Ox 08/07/24 12:38 101 H 18 130/94 97 08/07/24 12:20 99 F 104 H 16 144/87 99 Intake and Output 08/07/24 08/07/24 08/07/24 06:59 14:59 22:59 Other: Weight 106.141 kg Results CBC & Chem 7: 08/07/24 15:15 08/07/24 12:32 Labs: Abnormal Lab Results - Last 24 Hours (Table) 08/07/24 08/07/24 Range/Units 12:32 12:32 WBC 14.2 H (3.8-10.6) k/uL RBC 3.97 L (4.30-5.90) m/uL Hgb 12.3 L (13.0-17.5) gm/dL Hct 36.8 L (39.0-53.0) % Neutrophils # 11.7 H (1.3-7.7) k/uL Sodium 136 L (137-145) mmol/L Chloride 110 H (98-107) mmol/L Carbon Dioxide 21 L (22-30) mmol/L Glucose 145 H (74-99) mg/dL Total Protein 5.7 L (6.3-8.2) g/dL
[2024-08-07] MEDS: NICOTINE 21MG/24HR PATCH TRANSDERM SCH (18:22)
[2024-08-07] MEDS ORDERED: HYDROcodone/APAP 5-325MG 1 EACH TAB PO PRN (18:29)
[2024-08-07] MEDS: BUTALB/APAP/CAFF 50-325-40MG TAB PO PRN (18:42)
--- NOTE | 2024-08-07 20:04 | CT ---
EXAMINATION TYPE: CT angio abdomen pelvis, without and with contrast DATE OF EXAM: 08/07/2024 COMPARISON: NONE HISTORY: 48-year-old male left upper quadrant and left lower quadrant abdominal pain and GI Bleed. TECHNIQUE: Contiguous axial scanning of the abdomen and pelvis before and after administration of 100 ml Isovue 370 IV contrast. Additional delayed scan is performed. Coronal/sagittal MIP reconstructio ns performed. CT DLP: 2568.1 mGycm Automated exposure control for dose reduction was used. FINDINGS: The heart is normal size without pericardial effusion. Some stranding atelectasis in the lo wer lungs without. Liver mildly enlarged at 18.8 cm. Portal venous system is patent. No biliary ductal dilatation. Gallbladder, adrenal glands, spleen with hilar splenule, and pancreas within normal limits. A few tiny renal cortical cysts measuring up to 7 mm. Nonobstructive 3 mm left renal stone. Punctate 2 mm nonobstructive right renal stone. No hydronephros is on either side. Mild to moderate atherosclerotic calcification and plaque within the infrarenal abdominal aorta. No dilated bowel, free fluid, or free air. No mesenteric or retroperitoneal lymphadenopathy. Normal appendix. Scattered mild stool. Generalized colonic diverticulosis throughout the colon. No aston pericolonic i nflammatory change is seen. No active arterial extravasation identified. Bladder is urine distended. No abnormal fluid collection in the pelvis or pelvic lymphadenopathy. Pat ulous left inguinal canal. Bones: No osseous destructive process. IMPRESSION: 1. GENERALIZED COLONIC DIVERTICULOSIS. NO EVIDENCE FOR ACUTE DIVERTICULITIS. 2. A couple punctate nonobstructive renal calculi measuring up to 3 mm. [facility], , 08/07/2024 8:02 PM
[2024-08-07] MEDS: PANTOPRAZOLE 40 MG/10 ML VIAL IV SCH (20:19)
[2024-08-07 22:21] LABS: HCT 31.4 % (39.0-53.0); HGB 10.3 gm/dL (13.0-17.5); MCH 30.7 pg (25.0-35.0); MCHC 32.7 g/dL (31.0-37.0); Mean Platelet Volume 7.8; Platelet Count 208 k/uL (150-450); RBC 3.34 m/uL (4.30-5.90); RDW 13.8 % (11.5-15.5); WBC 12.9 k/uL (3.8-10.6)
[2024-08-08] MEDS: HYDROCORTISONE 10 MG TAB PO SCH ×2 (03:11→05:23)
[2024-08-08 07:02] LABS: HGB 10.3 gm/dL (13.0-17.5); Hypochromasia Slight; MCHC 32.2 g/dL (31.0-37.0); MCV 96.3 fL (80.0-100.0); Mean Platelet Volume 7.7; Platelet Count 229 k/uL (150-450); RBC 3.32 m/uL (4.30-5.90); RDW 13.9 % (11.5-15.5); WBC 11.8 k/uL (3.8-10.6)
[2024-08-08 07:16] LABS: ALT 18 U/L (4-49); AST 22 U/L (17-59); African American GFR (CKD) >90 (>60 ml/min/1.73 sqM); Albumin 3.1 g/dL (3.5-5.0); Alkaline Phosphatase 57 U/L (38-126); Anion Gap 4 mmol/L; Blood Urea Nitrogen 13 mg/dL (9-20); Calcium 7.9 mg/dL (8.4-10.2); Carbon Dioxide 25 mmol/L (22-30); Chloride 108 mmol/L (98-107); Glucose 92 mg/dL (74-99); Magnesium 1.9 mg/dL (1.6-2.3); Non-African American GFR(CKD) 85 (>60 ml/min/1.73 sqM); Potassium 4.1 mmol/L (3.5-5.1); Sodium 137 mmol/L (137-145); Total Bilirubin 0.6 mg/dL (0.2-1.3)
[2024-08-08] MEDS ORDERED: PANTOPRAZOLE 40 MG/10 ML VIAL IV SCH (09:00)
[2024-08-08] MEDS: TESTOSTERONE TRANSDERM SCH (09:51)
--- NOTE | 2024-08-08 13:00 | P.CONS ---
History of Present Illness - Reason for Consult Consult date: 08/08/24 GI bleed Requesting physician: Corey Pastor - Chief Complaint Bloody diarrhea - History of Present Illness This a 48-year-old pleasant male who presented to the emergency department yesterday with complaints of bloody diarrhea. States he had diarrhea for 3 to 4 days and then yesterday he had 2 episodes of dark blood mixed with his diarrhea. He states he did have some abdominal cramping associated with that yesterday. He denies any anticoagulation use does take Advil most days. Initial hemoglobin 12.3 with a drop to 10.3 today. Gastroenterology consulted for GI bleed. Denies any previous history of GI bleed. He had a CTA of the abdomen pelvis that showed diverticulosis without any evidence of diverticulitis. He denies any fevers or chills. No further bowel movement since he has been in the hospital. Denies any abdominal pain Review of Systems REVIEW OF SYSTEMS: CARDIOPULMONARY: No chest pain or shortness of breath. Gastrointestinal: No abdominal pain. No nausea or vomiting. No hematemesis, coffee-ground emesis. Diarrhea with rectal bleeding. GENITOURINARY: No dysuria or hematuria. MUSCULOSKELETAL: Reports normal range of motion. SKIN: No rashes. No jaundice. ENDOCRINE: No chills, fevers. No excessive weight gain or loss. No polydipsia or polyuria. PSYCHIATRIC: Unremarkable. NEUROLOGY: No change in mental status. Denies dizziness, headache. ENT: Vision unremarkable. CONSTITUTIONAL: No recent weight loss. No fever, chills, night sweats. Past Medical History Additional Past Medical History / Comment(s): pituitary tumor Past Surgical History: No Surgical Hx Reported Smoking Status: Current every day smoker Past Alcohol Use History: None Reported Past Drug Use History: None Reported Medications and Allergies Home Medications Medication Instructions Recorded Confirmed Type Cabergoline 0.5 mg PO MOFR 08/07/24 08/07/24 History Hydrocortisone [Cortef] 10 mg PO DAILY@0600 08/07/24 08/07/24 History Hydrocortisone [Cortef] 20 mg PO DAILY@0400 08/07/24 08/07/24 History Testosterone [Androgel 1.62%] 2 pump TRANSDERM DAILY 08/07/24 08/07/24 History Allergies Allergy/AdvReac Type Severity Reaction Status Date / Time No Known Allergies Allergy Verified 08/07/24 13:39 Physical Exam Vitals: Vital Signs Temp Pulse Resp BP Pulse Ox 08/08/24 06:36 98.3 F 77 18 152/88 100 08/08/24 03:00 84 16 131/92 96 08/08/24 01:40 86 16 98/68 95 08/08/24 01:00 84 22 135/91 95 08/08/24 00:40 93 16 135/91 97 08/07/24 23:00 93 16 134/97 97 08/07/24 22:00 82 20 124/76 98 08/07/24 21:00 92 20 127/96 98 08/07/24 20:00 87 16 137/99 100 08/07/24 19:48 89 12 137/99 98 08/07/24 19:31 99.3 F 90 18 137/99 99 08/07/24 18:23 93 16 140/99 100 08/07/24 16:12 93 16 135/92 97 08/07/24 12:38 101 H 18 130/94 97 08/07/24 12:20 99 F 104 H 16 144/87 99 General appearance: The patient is alert, oriented, appears in no acute distress. HET: Head is normocephalic and atraumatic. Conjunctiva pink. Sclera anicteric. Neck: Supple without lymphadenopathy. Trachea midline. Heart: Regular. Lungs: Equal expansion, normal respiratory effort. Abdomen: Soft, lower abdominal tenderness, nondistended. Skin: No rashes. No jaundice. Extremities: Normal skin color and turgor. No pedal edema. Neurological: No focal deficits. Alert and oriented x3. Results CBC & Chem 7: 08/08/24 06:24 08/08/24 06:24 Labs: Abnormal Lab Results - Last 24 Hours (Table) 08/07/24 08/07/24 08/07/24 Range/Units 12:32 12:32 15:15 WBC 14.2 H 14.9 H (3.8-10.6) k/uL RBC 3.97 L 3.61 L (4.30-5.90) m/uL Hgb 12.3 L 10.9 L (13.0-17.5) gm/dL Hct 36.8 L 33.9 L (39.0-53.0) % Neutrophils # 11.7 H (1.3-7.7) k/uL Sodium 136 L (137-145) mmol/L Chloride 110 H (98-107) mmol/L Carbon Dioxide 21 L (22-30) mmol/L Glucose 145 H (74-99) mg/dL Calcium (8.4-10.2) mg/dL Total Protein 5.7 L (6.3-8.2) g/dL Albumin (3.5-5.0) g/dL 08/07/24 08/08/24 08/08/24 Range/Units 21:13 06:24 06:24 WBC 12.9 H 11.8 H (3.8-10.6) k/uL RBC 3.34 L 3.32 L (4.30-5.90) m/uL Hgb 10.3 L 10.3 L (13.0-17.5) gm/dL Hct 31.4 L 32.0 L (39.0-53.0) % Neutrophils # (1.3-7.7) k/uL Sodium (137-145) mmol/L Chloride 108 H (98-107) mmol/L Carbon Dioxide (22-30) mmol/L Glucose (74-99) mg/dL Calcium 7.9 L (8.4-10.2) mg/dL Total Protein 5.0 L (6.3-8.2) g/dL Albumin 3.1 L (3.5-5.0) g/dL Comments: CTA abdomen and pelvis generalized colonic diverticulosis. No evidence for acute diverticulitis. A couple punctuate nonobstructive renal calculi measuring up to 3 mm Assessment and Plan (1) GI bleed Narrative/Plan: 48-year-old male presenting with 3 to 4 days of diarrhea with 2 episodes of bloody diarrhea which is now resolved. Likely component of colitis versus diverticular bleed. Bleeding has stopped at this time. Will continue to monitor for signs of GI bleed. Avoid NSAIDs. Continue Protonix 40 mg daily. Current Visit: Yes Status: Acute Code(s): K92.2 - GASTROINTESTINAL HEMORRHAGE, UNSPECIFIED SNOMED Code(s): 81852182 Plan: 1. Continue symptomatic and supportive care 2. Daily CBC, transfuse for hemoglobin less than 7 3. Protonix 40 mg daily 4. Avoid NSAIDs 5. Clear liquid diet, n.p.o. after midnight 6. Will plan for colonoscopy tomorrow 7. Bowel prep this evening Thank you for this consultation, we will continue to follow. Dr. Vishal Wilde I agree with the dictator's note, documented as a scribe by Estela Feliz.
[2024-08-08 15:42] LABS: HCT 28.6 % (39.0-53.0); HGB 9.6 gm/dL (13.0-17.5); MCH 31.8 pg (25.0-35.0); MCHC 33.8 g/dL (31.0-37.0); MCV 94.1 fL (80.0-100.0); Mean Platelet Volume 8.4; Platelet Count 195 k/uL (150-450); RBC 3.04 m/uL (4.30-5.90); RDW 14.2 % (11.5-15.5); WBC 10.6 k/uL (3.8-10.6)
--- NOTE | 2024-08-08 18:00 | P.PN ---
Subjective Progress Note Date: 08/08/24 Hospital course: Patient is a very pleasant 48-year-old male with a past medical history of pituitary tumor and nicotine dependence. He presented to the emergency department with a chief complaint of dizziness and experiencing reports of blood in stool. Patient reports symptoms began 3 days ago when he noticed having diarrhea with dark maroon/bloody stools. He reports having approximately 5-6 episodes daily with blood mixed throughout the stool accompanied by intermittent abdominal cramping. He does report taking Advil daily states taking approximately 600 mg daily since he can remember because it is the only thing that will help with his headaches from his pituitary tumor. He denies being on any blood thinners. He reports 1 previous episode of blood in his stool approximately a month ago lasting a couple days and clearing up on its own. He denies having a colonoscopy previously. Patient states his has encouraged him to go to the emergency department over the past 3 days but it was not until today that he felt his symptoms worsened. Patient reports with continued bloody stools he was in the restroom having a bowel movement when he became significantly diaphoretic and dizzy and felt as though he was going to pass out. Patient states he barely made it to the couch before falling over landing on the couch cushion and his stated that it I am taking you to the hospital. Patient denies having any other complaints including fevers, chills, chest pain, palpitations, shortness of breath, or experiencing any difficulties with or changes in his urinary function. Upon arrival to our facility, patient underwent evaluation in the emergency department. Vital signs upon arrival show blood pressure 144/87, heart rate 104, respiratory rate 16, temp 99.0 F, and SpO2 of 99% on room air. Labs completed and reviewed. CBC showing leukocytosis with WBC count of 14.2 and normocytic anemia with hemoglobin of 12.3 with baseline hemoglobin of 15-16. BMP showing non-anion gap metabolic acidosis with chloride of 110, bicarb of 21, and anion gap of 5. Renal function normal findings with BUN is 28 which is higher than baseline of 12. Blood glucose 145. Lactic acid 1.3. Magnesium 1.8. Liver profile normal findings. Troponin 0.018. Fecal occult positive. EKG was completed showing sinus tachycardia 102 bpm with nonspecific T wave changes in inferior/lateral leads and an incomplete right bundle branch block. Patient was admitted under our services with consultation to gastroenterology. Physical exam: Patient seen and fully evaluated at bedside this morning. He currently reports feeling great and denies any further episodes of bloody stools since arrival to our facility. He also reports resolution of abdominal tenderness upon palpation and currently denies having any other complaints at this time. Vital signs reviewed and stable. General: Nontoxic, no distress and appears stated age. Derm: Skin warm and dry, normal coloration for ethnicity. Head: Atraumatic, normocephalic and symmetric. Eyes: EOM's intact, no lid lag, and anicteric sclera Mouth: no lip lesions, mucus membranes moist Cardiovascular: regular rate and rhythm with normal S1S2, no murmur, positive posterior tibial pulses bilaterally, and cap refill < 2 seconds. Lungs: Respirations even, regular, and unlabored on room air. Lungs CTA bilaterally, no rhonchi, no rales, no wheezing, and no accessory muscle usage. Abdominal: soft, nontender to palpation, no guarding, no appreciable organo megaly Ext: ROM intact. No gross muscle atrophy, no edema, no contractures Neuro: Speech clear, face symmetrical and CN II-XII grossly intact with no noted focal neuro deficits Psych: Alert and oriented to person, place, time, and situation. Appropriate and pleasant affect. Assessment and Plan of Care: GI bleed Acute blood loss anemia, secondary to above -Locksmith Helper following, discussed plan of care with gastroenterology LAY OUT INSPECTOR stating tentative plans is for patient to undergo colonoscopy tomorrow. -CT abdomen and pelvis with contrast was completed showing generalized colonic diverticulosis with no evidence for acute diverticulitis and a couple punctate nonobstructive renal calculi measuring up to 3 mm. -Continue to monitor H&H every 6 hours and transfuse as needed for hemoglobin less than 7. Hemoglobin trending throughout the night resulting at 12.3, 10.9, 10.3, and again 10.3 this morning. -Continue Protonix 40 mg IVP twice daily. -Clear liquid diet and n.p.o. at midnight. -Continued gentle hydration with 0.9% normal saline at 100 cc/h. -SCDs for DVT prophylaxis. -Symptomatic care and pain management with Zofran 4 mg IVP every 8 hours as needed for nausea or vomiting and morphine 4 mg IVP every 4 hours as needed for pain. Pituitary tumor Continue cabergoline 0.5 mg twice weekly on Mondays and Fridays. Continue hydrocortisone 10 mg daily at 6 AM and 20 mg daily at 4 AM Continue testosterone AndroGel pump, personal pump Nicotine dependence Recommend smoking cessation and order placed for nicotine patch 21 mg daily. Data and imaging reviewed: CT abdomen and pelvis with contrast was completed showing generalized colonic diverticulosis with no evidence for acute diverticulitis and a couple punctate nonobstructive renal calculi measuring up to 3 mm. Hemoglobin trending throughout the night resulting at 12.3, 10.9, 10.3, and again 10.3 this morning. Morning labs completed and reviewed. CBC showing mild leukocytosis with WBC count of 11.8 and hemoglobin of 10.3. BMP showing mild hyperchloremia with chloride of 108 otherwise normal findings. Blood glucose was 92. Magnesium 1.9. Liver profile unremarkable with exception of mild hypoalbuminemia with alb umin of 3.1. Vital signs reviewed and stable. Blood pressure slightly elevated at 131/92, heart rate 85, respiratory rate 16, temp 98.3 F, and SpO2 of 99% on room air. CODE STATUS: Full code DVT prophylaxis: SCDs Anticipated discharge date: Pending clinical course Anticipated discharge place: Home Patient was seen independently by Nurse Practitioner. This document was prepared using [employer] dictation software. Please allow for errors in shredder operator while rare they do occur.. I reviewed the documentation as provided by the ANUEL above, who is the original author of this note. I agree with the documented assessment and plan, with the following changes: none Objective - Vital Signs Vital signs: Vital Signs Temp 98.3 F 08/08/24 06:36 Pulse 77 08/08/24 06:36 Resp 18 08/08/24 06:36 BP 152/88 08/08/24 06:36 Pulse Ox 100 08/08/24 06:36 FiO2 Intake & Output 08/07/24 08/08/24 08/08/24 18:59 06:59 18:59 Weight 106.141 kg - Labs CBC & Chem 7: 08/08/24 15:24 08/08/24 06:24 Labs: Abnormal Lab Results - Last 24 Hours (Table) 08/07/24 08/07/24 08/07/24 Range/Units 12:32 12:32 15:15 WBC 14.2 H 14.9 H (3.8-10.6) k/uL RBC 3.97 L 3.61 L (4.30-5.90) m/uL Hgb 12.3 L 10.9 L (13.0-17.5) gm/dL Hct 36.8 L 33.9 L (39.0-53.0) % Neutrophils # 11.7 H (1.3-7.7) k/uL Sodium 136 L (137-145) mmol/L Chloride 110 H (98-107) mmol/L Carbon Dioxide 21 L (22-30) mmol/L Glucose 145 H (74-99) mg/dL Calcium (8.4-10.2) mg/dL Total Protein 5.7 L (6.3-8.2) g/dL Albumin (3.5-5.0) g/dL 08/07/24 08/08/24 08/08/24 Range/Units 21:13 06:24 06:24 WBC 12.9 H 11.8 H (3.8-10.6) k/uL RBC 3.34 L 3.32 L (4.30-5.90) m/uL Hgb 10.3 L 10.3 L (13.0-17.5) gm/dL Hct 31.4 L 32.0 L (39.0-53.0) % Neutrophils # (1.3-7.7) k/uL Sodium (137-145) mmol/L Chloride 108 H (98-107) mmol/L Carbon Dioxide (22-30) mmol/L Glucose (74-99) mg/dL Calcium 7.9 L (8.4-10.2) mg/dL Total Protein 5.0 L (6.3-8.2) g/dL Albumin 3.1 L (3.5-5.0) g/dL
[2024-08-08] MEDS: PEG 3350 (236 GM/BTL) + LYTES 4,000 ML BOTTLE PO ONE (18:03)
[2024-08-08] MEDS: ONDANSETRON 4 MG/2 ML VIAL IVP PRN (20:43)
[2024-08-08 21:22] LABS: HGB 9.8 gm/dL (13.0-17.5); MCH 31.8 pg (25.0-35.0); MCHC 33.7 g/dL (31.0-37.0); MCV 94.4 fL (80.0-100.0); Mean Platelet Volume 8.3; Platelet Count 201 k/uL (150-450); RBC 3.08 m/uL (4.30-5.90); RDW 14.2 % (11.5-15.5); WBC 11.2 k/uL (3.8-10.6)
[2024-08-09 07:19] LABS: HCT 27.9 % (39.0-53.0); HGB 9.5 gm/dL (13.0-17.5); MCH 31.2 pg (25.0-35.0); MCHC 34.1 g/dL (31.0-37.0); MCV 91.5 fL (80.0-100.0); Mean Platelet Volume 8.8; Platelet Count 190 k/uL (150-450); RBC 3.05 m/uL (4.30-5.90); RDW 14.2 % (11.5-15.5); WBC 9.8 k/uL (3.8-10.6)
[2024-08-09] MEDS ORDERED: HYDROCORTISONE SUCCINATE 100 MG/2 ML VIAL ONE (12:47)
[2024-08-09] MEDS: IV FLUID CONTINUATION 1,000 ML IV ONE (12:47)
[2024-08-09] MEDS ORDERED: PROPOFOL 10 MG/ML 20 ML VIAL IV ONE (12:47)
[2024-08-09] MEDS ORDERED: LIDOCAINE 1% INJ 10MG/ML (20 ML MDV) ONE (12:47)
[2024-08-09] MEDS: LACTATED RINGERS 1,000 ML IV ONE (13:05)
--- NOTE | 2024-08-09 13:17 | P.PCN ---
Date of Procedure: 08/09/24 Procedure(s) Performed: BRIEF HISTORY: Patient is a 48-year-old pleasant white male admitted to hospital with acute lower GI bleed. Had multiple episodes of bright red blood per rectum and hemoglobin was 10 g/dL. He is scheduled for a colonoscopy to evaluate further PROCEDURE PERFORMED: Colonoscopy. PREOPERATIVE DIAGNOSIS: Acute lower GI bleed. IV sedation per Anesthesia. PROCEDURE: After informed consent was obtained, the patient, was brought into the endoscopy unit. IV sedation was administered by Anesthesia under continuous monitoring. Digital rectal examination was normal. Initially the Olympus CF-160 flexible video colonoscope was then inserted in the rectum, gradually advanced into the cecum without any difficulty. Careful examination was performed as the scope was gradually being withdrawn. Ileocecal valve and the appendiceal orifice were visualized and appeared normal. Prep was fair. There was some yellowish loose stool noted in the right colon.. Mucosa of the cecum, ascending colon, transverse colon, appeared normal. Some old blood noted in the left colon where there was moderate left-sided diverticulosis seen. No active bleeding identified. Mucosa of the descending colon, sigmoid colon, and rectum appeared normal. Retroflexion was performed in the rectum and no lesions were seen. The patient tolerated the procedure well. IMPRESSION: Moderate left-sided diverticulosis Some old blood noted in the left colon but no active bleeding identified No evidence of colorectal neoplasia RECOMMENDATIONS: Findings of this examination were discussed with the patient. Most likely the bleeding was diverticular in nature which has resolved. Will start him on a full liquid diet today and advance as tolerated tomorrow. If he remains stable he can be discharged home tomorrow..
[2024-08-09 14:27] LABS: HCT 27.6 % (39.0-53.0); HGB 9.4 gm/dL (13.0-17.5); MCH 31.3 pg (25.0-35.0); MCV 92.1 fL (80.0-100.0); Platelet Count 204 k/uL (150-450); RBC 2.99 m/uL (4.30-5.90); RDW 14.3 % (11.5-15.5); WBC 9.2 k/uL (3.8-10.6)
--- NOTE | 2024-08-09 15:16 | P.PN ---
Subjective Progress Note Date: 08/09/24 Hospital course: Patient is a very pleasant 48-year-old male with a past medical history of pituitary tumor and nicotine dependence. He presented to the emergency department with a chief complaint of dizziness and experiencing reports of blood in stool. Patient reports symptoms began 3 days ago when he noticed having diarrhea with dark maroon/bloody stools. He reports having approximately 5-6 episodes daily with blood mixed throughout the stool accompanied by intermittent abdominal cramping. He does report taking Advil daily states taking approximately 600 mg daily since he can remember because it is the only thing that will help with his headaches from his pituitary tumor. He denies being on any blood thinners. He reports 1 previous episode of blood in his stool approximately a month ago lasting a couple days and clearing up on its own. He denies having a colonoscopy previously. Patient states his has encouraged him to go to the emergency department over the past 3 days but it was not until today that he felt his symptoms worsened. Patient reports with continued bloody stools he was in the restroom having a bowel movement when he became significantly diaphoretic and dizzy and felt as though he was going to pass out. Patient states he barely made it to the couch before falling over landing on the couch cushion and his stated that it I am taking you to the hospital. Patient denies having any other complaints including fevers, chills, chest pain, palpitations, shortness of breath, or experiencing any difficulties with or changes in his urinary function. Upon arrival to our facility, patient underwent evaluation in the emergency department. Vital signs upon arrival show blood pressure 144/87, heart rate 104, respiratory rate 16, temp 99.0 F, and SpO2 of 99% on room air. Labs completed and reviewed. CBC showing leukocytosis with WBC count of 14.2 and normocytic anemia with hemoglobin of 12.3 with baseline hemoglobin of 15-16. BMP showing non-anion gap metabolic acidosis with chloride of 110, bicarb of 21, and anion gap of 5. Renal function normal findings with BUN is 28 which is higher than baseline of 12. Blood glucose 145. Lactic acid 1.3. Magnesium 1.8. Liver profile normal findings. Troponin 0.018. Fecal occult positive. EKG was completed showing sinus tachycardia 102 bpm with nonspecific T wave changes in inferior/lateral leads and an incomplete right bundle branch block. Patient was admitted under our services with consultation to gastroenterology. Physical exam: Patient seen and fully evaluated at bedside this morning. He is currently awaiting to be taken down for colonoscopy later this afternoon with Dr. Wilde. Patient currently denies any other complaints at this time. Reports continued resolution of abdominal pain. Vital signs reviewed and stable. General: Nontoxic, no distress and appears stated age. Derm: Skin warm and dry, normal coloration for ethnicity. Head: Atraumatic, normocephalic and symmetric. Eyes: EOM's intact, no lid lag, and anicteric sclera Mouth: no lip lesions, mucus membranes moist Cardiovascular: regular rate and rhythm with normal S1S2, no murmur, positive posterior tibial pulses bilaterally, and cap refill < 2 seconds. Lungs: Respirations even, regular, and unlabored on room air. Lungs CTA bilaterally, no rhonchi, no rales, no wheezing, and no accessory muscle usage. Abdominal: soft, nontender to palpation, no guarding, no appreciable organomegaly Ext: ROM intact. No gross muscle atrophy, no edema, no contractures Neuro: Speech clear, face symmetrical and CN II-XII grossly intact with no noted focal neuro deficits Psych: Alert and oriented to person, place, time, and situation. Appropriate and pleasant affect. Assessment and Plan of Care: GI bleed Acute blood loss anemia, secondary to above -Assistant Manager following, discussed plan of care with gastroenterology CONCERT MANAGER stating patient scheduled for colonoscopy later today.. -CT abdomen and pelvis with contrast was completed showing generalized colonic diverticulosis with no evidence for acute diverticulitis and a couple punctate nonobstructive renal calculi measuring up to 3 mm. -Continue to monitor hemoglobin and transfuse as needed for hemoglobin less than 7. Hemoglobin currently stable at 9.5. -Continue Protonix 40 mg IVP twice daily. -NPO pending completion of colonoscopy and diet to be advanced as indicated by gastroenterology. -Continued gentle hydration with 0.9% normal saline at 100 cc/h. -SCDs for DVT prophylaxis. -Symptomatic care and pain management with Zofran 4 mg IVP every 8 hours as needed for nausea or vomiting and morphine 4 mg IVP every 4 hours as needed for pain. Pituitary tumor Continue cabergoline 0.5 mg twice weekly on Mondays and Fridays. Continue hydrocortisone 10 mg daily at 6 AM and 20 mg daily at 4 AM Continue testosterone AndroGel pump, personal pump Nicotine dependence Recommend smoking cessation and order placed for nicotine patch 21 mg daily. Data and imaging reviewed: Morning labs completed and reviewed. CBC showing stable normocytic anemia with hemoglobin of 9.5. Over the past 24 hours hemoglobin has been trended resulting at 10.3, 9.6, 9.8, 9.5. Vital signs reviewed and stable. Blood pressure 145/81, heart rate 86, respiratory rate 16, temp 98.2 F, and SpO2 of 99% on room air. CODE STATUS: Full code DVT prophylaxis: SCDs Anticipated discharge date: Pending clinical course Anticipated discharge place: Home Patient was seen independently by Nurse Practitioner. This document was prepared using [employer] dictation software. Please allow for errors in manager telecom while rare they do occur.. I reviewed the documentation as provided by the ANUEL above, who is the original author of this note. I agree with the documented assessment and plan, with the following changes: none Objective - Vital Signs Vital signs: Vital Signs Temp 98.2 F 08/09/24 07:32 Pulse 86 08/09/24 07:32 Resp 16 08/09/24 07:32 BP 145/81 08/09/24 07:32 Pulse Ox 99 08/09/24 02:01 FiO2 Intake & Output 08/08/24 08/09/24 08/09/24 18:59 06:59 18:59 Weight 106.141 kg Other: Voiding Method Toilet # Voids 2 # Bowel Movements 2 - Labs CBC & Chem 7: 08/09/24 13:53 08/08/24 06:24 Labs: Abnormal Lab Results - Last 24 Hours (Table) 08/08/24 08/08/24 08/09/24 Range/Units 15:24 20:50 06:45 WBC 11.2 H (3.8-10.6) k/uL RBC 3.04 L 3.08 L 3.05 L (4.30-5.90) m/uL Hgb 9.6 L 9.8 L 9.5 L (13.0-17.5) gm/dL Hct 28.6 L 29.0 L 27.9 L (39.0-53.0) %
[2024-08-09 18:52] LABS: HGB 9.8 gm/dL (13.0-17.5); MCH 30.9 pg (25.0-35.0); MCHC 33.8 g/dL (31.0-37.0); MCV 91.6 fL (80.0-100.0); Mean Platelet Volume 8.6; Platelet Count 224 k/uL (150-450); RBC 3.16 m/uL (4.30-5.90); RDW 14.2 % (11.5-15.5); WBC 11.2 k/uL (3.8-10.6)
[2024-08-10 00:40] LABS: HCT 25.8 % (39.0-53.0); HGB 8.7 gm/dL (13.0-17.5); MCH 30.6 pg (25.0-35.0); MCHC 33.6 g/dL (31.0-37.0); MCV 91.1 fL (80.0-100.0); Mean Platelet Volume 8.2; Platelet Count 225 k/uL (150-450); RBC 2.83 m/uL (4.30-5.90); RDW 14.4 % (11.5-15.5); WBC 10.7 k/uL (3.8-10.6)
[2024-08-10 08:22] VITALS: PULSE 83; RESP 16; TEMP 98.1
[2024-08-10 08:24] LABS: HCT 27.2 % (39.6-50.0); HGB 8.9 g/dL (13.0-17.0); MCH 31.1 pg (27.0-32.0); MCHC 32.7 g/dL (32.0-37.0); MCV 95.1 FL (80.0-97.0); Mean Platelet Volume 10.6 FL (9.5-12.2); NRBC Per 100 WBC 0 X 10*3/uL (0.00-0.01); Platelet Count 223 X 10*3/uL (140-440); RBC 2.86 X 10*6/uL (4.40-5.60); RDW 13.8 % (11.5-14.5); WBC 11.08 X 10*3/uL (4.50-10.00)
[2024-08-10 08:58] LABS: ALT 21 U/L (10-49); AST 17 U/L (14-35); Albumin 3.4 g/dL (3.8-4.9); Albumin/Globulin Ratio 3.09 Ratio (1.60-3.17); Alkaline Phosphatase 56 U/L (41-126); Blood Urea Nitrogen 8.7 mg/dL (9.0-27.0); Calcium 8.2 mg/dL (8.7-10.3); Carbon Dioxide 26.4 mmol/L (21.6-31.8); Chloride 108 mmol/L (96-109); Globulin 1.1 g/dL (1.6-3.3); Glucose 92 mg/dL (70-110); Sodium 142 mmol/L (135-145); Total Bilirubin <0.2 mg/dL (0.3-1.2); Total Protein 4.5 g/dL (6.2-8.2)
[2024-08-10 09:22] VITALS: BP 154/88
--- NOTE | 2024-08-10 09:34 | P.DS ---
Providers Date of admission: 08/07/24 13:33 Expected date of discharge: 08/10/24 Attending physician: Torres Galeana MD Consults: 08/07/24 13:26 Consult Physician Routine Consulting Provider: Kristen Wilde Consult Reason/Comments: gi bleed Do you want consulting provider notified?: Yes Primary care physician: Stated None Hospital Course: Discharge Diagnosis: GI bleed Acute blood loss anemia, secondary to above Pituitary tumor Nicotine dependence Hospital course: Patient is a very pleasant 48-year-old male with a past medical history of pituitary tumor and nicotine dependence. He presented to the emergency department with a chief complaint of dizziness and experiencing reports of blood in stool. Upon arrival to our facility, patient underwent evaluation in the emergency department. Vital signs upon arrival show blood pressure 144/87, heart rate 104, respiratory rate 16, temp 99.0 F, and SpO2 of 99% on room air. Labs completed and reviewed. CBC showing leukocytosis with WBC count of 14.2 and normocytic anemia with hemoglobin of 12.3 with baseline hemoglobin of 15-16. BMP showing non-anion gap metabolic acidosis with chloride of 110, bicarb of 21, and anion gap of 5. Renal function normal findings with BUN is 28 which is higher than baseline of 12. Blood glucose 145. Lactic acid 1.3. Magnesium 1.8. Liver profile normal findings. Troponin 0.018. Fecal occult positive. EKG was completed showing sinus tachycardia 102 bpm with nonspecific T wave changes in inferior/lateral leads and an incomplete right bundle branch block. Patient was admitted under our services with consultation to gastroenterology. Hemoglobin was trended throughout hospitalization. Patient underwent colonoscopy with applications support lead on 08/09/2024 which revealed moderate left- sided diverticulosis with some old blood noted in the left colon but no active bleeding identified and no evidence of colorectal neoplasia. Patient's diet was slowly advanced and he was again monitored overnight. Patient tolerating regular diet at this time and no further reports of rectal bleeding. Vital signs stable with blood pressure 154/88 and heart rate 83. Hemoglobin stable at 8.9. Patient cleared from gastroenterology perspective recommending outpatient follow-up in their office. Medically, patient stable at this time patient advised against taking ibuprofen for headaches and discharged home with prescription for Fioricet to be used as needed for severe headache. Patient to follow-up with PCP and establish care at residency clinic on 08/30/2024. Patient to follow-up with applications support lead in 2 weeks. Physical exam: Vital signs reviewed and stable. General: Nontoxic, no distress and appears stated age. Derm: Skin warm and dry, normal coloration for ethnicity. Head: Atraumatic, normocephalic and symmetric. Eyes: EOM's intact, no lid lag, and anicteric sclera Mouth: no lip lesions, mucus membranes moist Cardiovascular: regular rate and rhythm with normal S1S2, no murmur, positive posterior tibial pulses bilaterally, and cap refill < 2 seconds. Lungs: Respirations even, regular, and unlabored on room air. Lungs CTA bilaterally, no rhonchi, no rales, no wheezing, and no accessory muscle usage. Abdominal: soft, nontender to palpation, no guarding, no appreciable organomegaly Ext: ROM intact. No gross muscle atrophy, no edema, no contractures Neuro: Speech clear, face symmetrical and CN II-XII grossly intact with no noted focal neuro deficits Psych: Alert and oriented to person, place, time, and situation. Appropriate and pleasant affect. A total of 35 minutes of time were spent preparing this complex discharge summary. Pt was discharged on 08/10/2024 at 9:34 AM Patient was seen independently by Nurse Practitioner. This document was prepared using [employer] dictation software. Please allow for errors in water plant operator while rare they do occur. I reviewed the documentation as provided by the ANUEL above, who is the original author of this note. I agree with the documented assessment and plan, with the following changes: none Patient Condition at Discharge: Stable Plan - Discharge Summary Discharge Rx Participant: Yes New Discharge Prescriptions: New Pantoprazole [Protonix] 40 mg PO DAILY 30 Days #30 tab Butalb/APAP/Caff 50-325-40Mg [Fioricet 50-325-40] 1 each PO Q4HR PRN #18 tab PRN Reason: Headache Continue Hydrocortisone [Cortef] 10 mg PO DAILY@0600 Hydrocortisone [Cortef] 20 mg PO DAILY@0400 Testosterone [Androgel 1.62%] 2 pump TRANSDERM DAILY Cabergoline 0.5 mg PO MOFR Discharge Medication List Cabergoline 0.5 mg PO MOFR 08/07/24 [History] Hydrocortisone [Cortef] 10 mg PO DAILY@0600 08/07/24 [History] Hydrocortisone [Cortef] 20 mg PO DAILY@0400 08/07/24 [History] Testosterone [Androgel 1.62%] 2 pump TRANSDERM DAILY 08/07/24 [History] Butalb/APAP/Caff 50-325-40Mg [Fioricet 50-325-40] 1 each PO Q4HR PRN #18 tab 08/10/24 [Rx] Pantoprazole [Protonix] 40 mg PO DAILY 30 Days #30 tab 08/10/24 [Rx] Follow up Appointment(s)/Referral(s): Rula Valerio MD [REFERRING] - 08/30/24 1:00 pm (Call and schedule follow up appointment with residency clinic PRIOR to discharge. ) Kristen Wilde MD [STAFF PHYSICIAN] - 2 Weeks (Office is not answering at time of discharge. Please call for follow-up appointment.) [facility] [NON-STAFF] - 1 Week [facility] [NON-STAFF] - 1 Week Patient Instructions/Handouts: Diverticulosis (DC) Discharge/Stand Alone Forms: [facility] Area PCPs Discharge Disposition: HOME SELF-CARE
--- NOTE | 2024-08-10 16:39 | P.PN ---
Subjective Progress Note Date: 08/10/24 Principal diagnosis: GI bleed This a 48-year-old pleasant male who presented to the emergency department yesterday with complaints of bloody diarrhea. States he had diarrhea for 3 to 4 days and then yesterday he had 2 episodes of dark blood mixed with his diarrhea. He states he did have some abdominal cramping associated with that yesterday. He denies any anticoagulation use does take Advil most days. Initial hemoglobin 12.3 with a drop to 10.3 today. Gastroenterology consulted for GI bleed. Denies any previous history of GI bleed. He had a CTA of the abdomen pelvis that showed diverticulosis without any evidence of diverticulitis. He denies any fevers or chills. No further bowel movement since he has been in the hospital. Denies any abdominal pain 08/10/2024 patient seen and examined today as a follow-up. He underwent colonoscopy yesterday with finding of diverticulosis with old blood in the colon but no active bleeding. Today patient states he has had no further bleeding. No diarrhea abdominal pain nausea or vomiting. Hemoglobin stable at 8.9. Objective - Vital Signs Vital signs: Vital Signs Temp 98.1 F 08/10/24 07:08 Pulse 83 08/10/24 07:08 Resp 16 08/10/24 07:08 BP 154/88 08/10/24 09:22 Pulse Ox 98 08/10/24 07:08 FiO2 Intake & Output 08/09/24 08/10/24 08/10/24 18:59 06:59 18:59 Intake Total 200 Output Total 0 Balance 200 Intake: IV 200 Output: Urine 0 Other: Voiding Method Toilet Toilet # Voids 1 3 - Exam General appearance: The patient is alert, oriented, appears in no acute distress. HET: Head is normocephalic and atraumatic. Conjunctiva pink. Sclera anicteric. Neck: Supple without lymphadenopathy. Abdomen: Soft, nontender, nondistended with bowel sounds. No guarding or rigidity. Extremities: Normal skin color and turgor. No pedal edema Skin: No rashes, no jaundice Neurological: No focal deficits. Alert and oriented. - Labs CBC & Chem 7: 08/10/24 03:09 08/10/24 03:09 Labs: Abnormal Lab Results - Last 24 Hours (Table) 08/09/24 08/09/24 08/09/24 Range/Units 13:53 18:19 23:59 WBC 11.2 H 10.7 H (3.8-10.6) k/uL RBC 2.99 L 3.16 L 2.83 L (4.30-5.90) m/uL Hgb 9.4 L 9.8 L 8.7 L (13.0-17.5) gm/dL Hct 27.6 L 29.0 L 25.8 L (39.0-53.0) % BUN (9.0-27.0) mg/dL BUN/Creatinine Ratio (12.00-20.00) Ratio Calcium (8.7-10.3) mg/dL Total Bilirubin (0.3-1.2) mg/dL Total Protein (6.2-8.2) g/dL Albumin (3.8-4.9) g/dL Globulin (1.6-3.3) g/dL 08/10/24 08/10/24 Range/Units 03:09 03:09 WBC 11.08 H (3.8-10.6) k/uL RBC 2.86 L (4.30-5.90) m/uL Hgb 8.9 L (13.0-17.5) gm/dL Hct 27.2 L (39.0-53.0) % BUN 8.7 L (9.0-27.0) mg/dL BUN/Creatinine Ratio 8.70 L (12.00-20.00) Ratio Calcium 8.2 L (8.7-10.3) mg/dL Total Bilirubin <0.2 L (0.3-1.2) mg/dL Total Protein 4.5 L (6.2-8.2) g/dL Albumin 3.4 L (3.8-4.9) g/dL Globulin 1.1 L (1.6-3.3) g/dL Assessment and Plan (1) GI bleed Narrative/Plan: 48-year-old male presenting with 3 to 4 days of diarrhea with 2 episodes of bloody diarrhea which is now resolved. Likely component of colitis versus diverticular bleed. Bleeding has stopped at this time. Will continue to monitor for signs of GI bleed. Avoid NSAIDs. Continue Protonix 40 mg daily. Patient underwent colonoscopy with findings of diverticulosis and old blood noted in the colon. Likely diverticular bleed that has stopped. Status: Acute Code(s): K92.2 - GASTROINTESTINAL HEMORRHAGE, UNSPECIFIED SNOMED Code(s): 67083476 Plan: 1. Continue symptomatic and supportive care 2. Diet as tolerated 3. Patient is status post colonoscopy. No further workup indicated. Likely diverticular bleed. 4. Patient is cleared from gastroenterology for discharge Thank you for this consultation. Dr. Vishal Wilde I agree with the dictator's note, documented as a scribe by Estela Feliz.
== END 2024-08-10 11:04 | disposition home or self-care (01) ==
LOC: EC 12:11 → 3SCARD 13:33 → INTOOBSV 13:33 → 3SCARD 16:33 → 4SSUR 08-08 15:57 → UNDODISIN 08-10 11:04
PROVIDERS: ADMIT Internal Medicine; ATTEND Internal Medicine
DX: K92.1 Melena (principal); K57.30 Diverticulosis of large intestine without perforation or abscess without bleeding; D62 Acute posthemorrhagic anemia; D49.7 Neoplasm of unspecified behavior of endocrine glands and other parts of nervous system; D72.829 Elevated white blood cell count, unspecified; E87.29 Other acidosis; F17.200 Nicotine dependence, unspecified, uncomplicated
CPT/HCPCS: 96376 ×5; 96375; 96374; 99291; 36415; 93005; 86900; 86901; 80053 ×3; 83605; 83735 ×3; 84484; 85025; 85027 ×4; 85730; 86850; 82272; 74174; 45378; G0378 ×4; S4990 ×2; J1720; J2405; J2003; J2704; Q9967; J2470 ×4

== ENCOUNTER → 2024-09-11 | Outpatient (CLI) | payer BC ==
[2024-09-11 18:41] LABS: HCT 36.2 % (39.6-50.0); HGB 11.5 g/dL (13.0-17.0); MCH 26.3 pg (27.0-32.0); MCHC 31.8 g/dL (32.0-37.0); MCV 82.6 FL (80.0-97.0); Mean Platelet Volume 10.2 FL (9.5-12.2); NRBC Per 100 WBC 0 X 10*3/uL (0.00-0.01); Platelet Count 298 X 10*3/uL (140-440); RBC 4.38 X 10*6/uL (4.40-5.60); RDW 14.9 % (11.5-14.5); WBC 11.32 X 10*3/uL (4.50-10.00)
[2024-09-11 18:55] LABS: Prostate Specific Antigen 0.51 ng/mL (0.000-2.500)
[2024-09-11 19:16] LABS: Prolactin 26.9 ng/mL (2.100-17.000)
== END | disposition home or self-care (01) ==
LOC: LABWHC1 15:05
PROVIDERS: ATTEND Internal Medicine Endocrinology, Diabetes & Metabolism
DX: D35.2 Benign neoplasm of pituitary gland (principal); E29.1 Testicular hypofunction
CPT/HCPCS: 36415; 82024; 82533; 84146; 84153; 84403; 85027